=== PATIENT | female | born 1965 ===

== ENCOUNTER 2018-04-01 16:42 | Emergency (ER) | payer MEDICAID, OTHER ==
[2018-04-01 16:51] VITALS: TEMP 98.2; O2SAT 99
--- NOTE | 2018-04-01 17:20 | C.PDOC ---
Time Seen by Provider: 04/01/18 17:01 Chief Complaint (Nursing): Weakness/Neurological Deficit Past Medical History Vital Signs: Last Vital Signs Temp 98.2 F 04/01/18 16:48 Pulse 79 04/01/18 16:48 Resp 18 04/01/18 16:48 BP 171/94 H 04/01/18 16:48 Pulse Ox 99 04/01/18 16:48 - Social History Hx Alcohol Use: No Hx Substance Use: No - Immunization History Hx Tetanus Toxoid Vaccination: No Hx Influenza Vaccination: No Hx Pneumococcal Vaccination: No ED Course And Treatment O2 Sat by Pulse Oximetry: 99 Disposition - Disposition
--- NOTE | 2018-04-01 17:21 | C.PDOC ---
History Of Present Illness 53 y/o female presents to ED with c/o numbness, weakness and droops to right side of face since she woke up this morning associated with headache. Patient reports increased tearing from right eye and denies low extremity numbness, slurred speech, vision changes, injury or any other complaints at this time. Time Seen by Provider: 04/01/18 17:01 Chief Complaint (Nursing): Weakness/Neurological Deficit History Per: Patient History/Exam Limitations: no limitations Onset/Duration Of Symptoms: Days Current Symptoms Are (Timing): Still Present Past Medical History Reviewed: Historical Data, Nursing Documentation, Vital Signs Vital Signs: Last Vital Signs Temp 98.2 F 04/01/18 16:48 Pulse 79 04/01/18 16:48 Resp 18 04/01/18 16:48 BP 171/94 H 04/01/18 16:48 Pulse Ox 99 04/01/18 17:36 - Medical History PMH: No Chronic Diseases Surgical History: No Surg Hx Family History: States: No Known Family Hx - Social History Hx Alcohol Use: No Hx Substance Use: No - Immunization History Hx Tetanus Toxoid Vaccination: No Hx Influenza Vaccination: No Hx Pneumococcal Vaccination: No Review Of Systems Constitutional: Negative for: Fever, Chills Gastrointestinal: Negative for: Nausea, Vomiting Skin: Negative for: Rash Neurological: Positive for: Weakness, Numbness, Headache. 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 [Outside] [facility] [Other] Disposition: HOME/ ROUTINE Disposition Time: 17:47 Condition: IMPROVED Prescriptions: predniSONE [Prednisone] 60 mg PO DAILY #12 tab Valacyclovir HCl [Valtrex] 1,000 mg PO TID #21 tablet Instructions: Castillo's Palsy (DC) Forms: [facility] ([place]), Work Excuse Print Language: ICELANDIC - Clinical Impression Clinical Impression: Castillo palsy - Scribe Statement The provider has reviewed the documentation as recorded by the Alek Pace All medical record entries made by the Alek were at my direction and personally dictated by me. I have reviewed the chart and agree that the record accurately reflects my personal performance of the history, physical exam, medical decision making, and the department course for this patient. I have also personally directed, reviewed, and agree with the discharge instructions and disposition.
--- NOTE | 2018-04-01 17:46 | CT ---
Date of service: 04/01/2018 PROCEDURE: CT HEAD WITHOUT CONTRAST. HISTORY: Right-sided facial weakness. COMPARISON: No prior study available for comparison. TECHNIQUE: Axial computed tomography images were obtained through the head/brain without intravenous contrast. Radiation dose: Total exam DLP = 787.36 mGy-cm. This CT exam was performed using one or more of the following dose reduction techniques: Automated exposure control, adjustment of the mA and/or kV according to patient size, and/or use of iterative reconstruction technique. FINDINGS: HEMORRHAGE: No acute parenchymal, subarachnoid or extra-axial hemorrhage. BRAIN: No obvious large acute infarct however note the possibility of a small hyperacute infarct cannot be excluded on this study. Clinic correlation recommended. No obvious parenchymal nor extra-axial masses or collections identified on this noncontrast study. Ventricular and sulcal size within range of normal this patient's stated age. VENTRICLES: No obstructive hydrocephalus. CALVARIUM: Calvarium intact. PARANASAL SINUSES: Unremarkable as visualized. No significant inflammatory changes. MASTOID AIR CELLS: Unremarkable as visualized. No inflammatory changes. OTHER FINDINGS: None. IMPRESSION: No acute intracranial hemorrhage.
[2018-04-01 18:21] VITALS: BP 112/70; PULSE 70; RESP 12
== END 2018-04-01 18:20 | disposition home or self-care (01) ==
LOC: C.ER 16:42
DX: G51.0 Bell's palsy (principal)